=== PATIENT | female | born 1970 | race Caucasian/White ===

== ENCOUNTER → 2020-02-23 | Outpatient (CLI) | payer BC ==
--- NOTE | 2020-02-23 15:24 | XR ---
EXAMINATION TYPE: XR cervical spine comp DATE OF EXAM: 02/23/2020 TECHNIQUE: Frontal, lateral, oblique, and open mouth view of the cervical spine are obtained. HISTORY: [id number] CERVICALGIA right arm and hand pain. COMPARISON: None FINDINGS: The cervical spine is visualized from C1 thru the the bottom of C7 level, it is straighten ed in alignment without evidence of acute fracture or dislocation. Slight grade 1 retrolisthesis C5 o n C6. The pre-vertebral soft tissue appears within normal limits. The C1-C2 articulation is within n ormal limits on the open mouth view. Vertebral body heights are maintained. Mild disc space narrowin g and anterior spurring C5-C6 and C6-C7 levels The oblique images showed neural foraminal encroachmen t bilaterally at C5-C6 level due to marginal spurring. Overlying soft tissue is unremarkable. Subopti mal evaluation of C7-T1 disc space without dedicated swimmer's lateral view. IMPRESSION: As above.
== END | disposition home or self-care (01) ==
LOC: RADXRYALE 15:05
PROVIDERS: ATTEND Physician Assistant Medical
DX: M54.2 Cervicalgia (principal)
CPT/HCPCS: 72050

== ENCOUNTER → 2020-03-26 | Outpatient (CLI) | payer BC ==
--- NOTE | 2020-03-26 08:22 | US ---
EXAMINATION TYPE: US pelvic complete DATE OF EXAM: 03/26/2020 COMPARISON: NONE CLINICAL HISTORY: 49-year-old female N83.202 LT OVARIAN CYST, R101.32 LT LOWER QUADRANT PAIN. TECHNIQUE: Transabdominal (TA). Date of LMP: 03/04/2020 FINDINGS: EXAM MEASUREMENTS: Uterus: 8.9 x 3.9 x 5.2 cm Endometrial Stripe: 0.9 cm Right Ovary: 3.0 x 2.2 x 1.8 cm Left Ovary: 2.0 x 2.3 x 1.1 cm 1. Uterus: Anteverted. Left anterolateral focal fibroid at the level of the uterine body measures 1.5 x 1.4 x 1.4 cm. This appears intramural. 2. Endometrium: wnl 3. Right Ovary: follicle measures 1.6 x 1.2 x 1.4 cm 4. Left Ovary: wnl 5. Bilateral Adnexa: wnl 6. Posterior cul-de-sac: no free fluid IMPRESSION: 1. Endometrial stripe measuring 9 mm. 2. A 1.5 cm left anterolateral uterine body intramural fibroid. 3. A 1.6 cm dominant follicle or functional cyst in the right ovary.
== END | disposition home or self-care (01) ==
LOC: RADUSWWP 07:37
PROVIDERS: ATTEND Family Medicine
DX: D25.1 Intramural leiomyoma of uterus (principal); N83.201 Unspecified ovarian cyst, right side; N83.202 Unspecified ovarian cyst, left side; R10.32 Left lower quadrant pain
CPT/HCPCS: 76856

== ENCOUNTER 2020-05-21 10:15 | Day surgery (SDC) | payer BC ==
[2020-05-19 09:21] VITALS: BMI 26.2
--- NOTE | 2020-05-20 09:55 | HP ---
HISTORY AND PHYSICAL CHIEF COMPLAINT: Right hand pain and numbness. 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 She notes numbness in her thumb, index, middle, and ring fingers. She has been also. She has significant night symptoms. She has been wearing a brace and has tried medications without much relief. PAST MEDICAL HISTORY: Significant for hypothyroidism. PAST SURGICAL HISTORY: Negative. CURRENT MEDICATIONS: None. She has allergies to PENICILLIN, SULFA. FAMILY HISTORY: Significant for cancer. SOCIAL HISTORY: Negative for current tobacco or alcohol use. 16 POINT REVIEW OF SYSTEMS: Otherwise reviewed and is noncontributory. PHYSICAL EXAMINATION: On examination, the patient is approximately 5 foot 3, 148 pounds of mesomorphic habitus. HEENT: Exam is nonfocal. NECK: Supple. She is nontender about the right shoulder and elbow. On examination of her right wrist, she has a positive carpal tunnel compression test. Adductor pollicis brevis strength is 5-/5. Light touch is diffusely diminished in the right digits. She has minimal thenar wasting. Intrinsic strength is 5/5. EMG report right upper extremity shows right median motor latency of the carpal canal 5.6, sensory latency 6.3. IMPRESSION: Right carpal tunnel syndrome-symptomatic. RECOMMENDATIONS: I talked to the patient at length regarding her condition and treatment options. At this point, she is quite symptomatic despite conservative measures. After a thorough discussion, she opts to proceed with surgery. We will plan to proceed with right carpal tunnel release utilizing local anesthetic and IV sedation as an outpatient procedure. Risks and benefits were discussed at length in layman's terms. MMODL / IJN: [id number] /
[~2020-05-21 10:15] MED LIST: DEXAMETHASONE SOD PHOSPHATE 10 MG/ML 1 ML VIAL IV ONE; HYDROmorphone 0.5 MG/0.5 ML SYRINGE IVP PRN; LACTATED RINGERS 1,000 ML IV SCH; MIDAZOLAM 2 MG/2 ML VIAL IV PRN; ONDANSETRON 4 MG/2 ML VIAL IVP ONE; SCOPOLAMINE 1.5MG/72HR PATCH TRANSDERM ONE
[2020-05-21] MEDS ORDERED: BUPIVACAINE (PF) 0.25% 30 ML VIAL SQ ONE ×3 (10:16→11:52)
[2020-05-21 10:48] VITALS: RESP 16; TEMP 98.6
[2020-05-21] MEDS ORDERED: LIDOCAINE 1% (10MG/ML) FOR IV START INTRADERMA ONE (10:49)
[2020-05-21] MEDS ORDERED: fentaNYL (PF) 50 MCG/ML 2 ML AMP ONE (11:35)
[2020-05-21] MEDS ORDERED: PROPOFOL 10 MG/ML 20 ML VIAL IV ONE (11:35)
[2020-05-21] MEDS ORDERED: MIDAZOLAM 2 MG/2 ML VIAL ONE (11:35)
[2020-05-21] MEDS ORDERED: KETOROLAC 15 MG/ML 1 ML VIAL ONE (11:35)
--- NOTE | 2020-05-21 12:17 | P.OP ---
Date of Procedure: 05/21/20 Preoperative Diagnosis: Right carpal tunnel syndromesymptomatic Postoperative Diagnosis: Same Procedure(s) Performed: Right carpal tunnel release Anesthesia: MAC, local Surgeon: Roly Giraldo Estimated Blood Loss (ml): 2 Pathology: none sent Condition: stable Disposition: PACU Indications for Procedure: The patient's a 49-year-old female who presents with progressive right hand pain and numbness secondary to carpal tunnel syndrome despite conservative measures. A discussion of the risks and benefits of operative intervention versus continued conservative measures was made with patient. She To proceed with surgery. Operative risks to include infection, neurovascular injury, development of blood clots, possible incomplete resolution of symptoms, possible recurrence of symptoms, possible development of reflex sympathetic dystrophy need for subsequent procedures was discussed. Informed consent was obtained. Operative Findings: As below Description of Procedure: The patient was brought to the operating room, and after induction of IV sedation the right upper extremity was prepped and draped in normal fashion. The proposed incision site was outlined with a skin marker in line with the radial aspect the fourth ray extending from the volar distal wrist crease distally 2 and half centimeters. 10 mL of quarter percent plain Marcaine was injected. The tourniquet was inflated to 250 mmHg. Skin was then incised sharply. Subcu tissues were divided sharply. Electrocautery was used for hemostasis. The superficial palmar fascia was identified and was split in line with the skin incision. The transverse carpal ligament was identified and transected under direct visualization distally to level of palmar fat pad. Proximally was taken level of the volar wrist crease. A plane above and below the transverse carpal ligament was then bluntly developed with tenotomies. The confluence of the distal forearm fascia and the transverse carpal ligament was then transected under direct visualization with the tines pointed in the ulnar direction. I felt there was adequate proximal and distal release. Neural lysis was not performed. The wound was irrigated with normal saline. The skin was reapproximated with simple 4-0 nylon suture. A sterile dressing was applied. The tourniquet was deflated with less than 15 minutes total tourniquet time. The patient transferred to recovery in good condition. Blood loss estimated 2 mL. No complications were incurred. Sponge and needle counts were correct in the case.
[2020-05-21 12:29] VITALS: BP 103/51; PULSE 67
== END 2020-05-21 12:50 | disposition home or self-care (01) ==
LOC: OR 10:15
PROVIDERS: ATTEND Orthopaedic Surgery
DX: G56.01 Carpal tunnel syndrome, right upper limb (principal); E03.9 Hypothyroidism, unspecified; J30.2 Other seasonal allergic rhinitis; Z88.1 Allergy status to other antibiotic agents; Z88.0 Allergy status to penicillin; Z88.2 Allergy status to sulfonamides; Z85.828 Personal history of other malignant neoplasm of skin; Z79.899 Other long term (current) drug therapy; Z80.9 Family history of malignant neoplasm, unspecified
CPT/HCPCS: 81025; 64721; J2250; J1100; J2405; J0690; J3010; J1885; J2704

== ENCOUNTER → 2021-04-05 | Outpatient (CLI) | payer OTHER ==
--- NOTE | 2021-04-05 17:49 | XR ---
EXAMINATION TYPE: XR lumbar spine 2 or 3V DATE OF EXAM: 04/05/2021 COMPARISON: NONE HISTORY: Back pain TECHNIQUE: 3 views FINDINGS: The lumbar vertebra have normal alignment. Posterior elements are intact. Disc spaces are n ormal. Sacroiliac joints are intact. IMPRESSION: Negative lumbar spine exam. No fracture.
== END | disposition home or self-care (01) ==
LOC: RADXRMAIN 17:15
PROVIDERS: ATTEND Emergency Medicine
DX: S39.012A Strain of muscle, fascia and tendon of lower back, initial encounter (principal); X58.XXXA Exposure to other specified factors, initial encounter
CPT/HCPCS: 72100

== ENCOUNTER → 2021-12-05 | Outpatient (CLI) | payer BC ==
--- NOTE | 2021-12-06 08:40 | XR ---
EXAM TYPE: LUMBAR SPINE X RAY SERIES COMPARISON: 04/05/2021 HISTORY: Pain TECHNIQUE: 3 views are submitted. FINDINGS: Alignment is anatomic. The pedicles are intact. The transverse processes are intact. Hypertrophic and degenerative changes of the spine. Grade 1 anterolisthesis of L5 relative to S1. Facet arthropat hy seen. Vascular calcifications noted. Findings suggest bilateral sacroiliitis greater on the left. IMPRESSION: 1. Multilevel degenerative disc disease with facet arthropathy. 2. Sacroiliitis.
== END | disposition home or self-care (01) ==
LOC: RADXRYALE 16:19
PROVIDERS: ATTEND Physician Assistant Medical
DX: M47.896 Other spondylosis, lumbar region (principal); M46.1 Sacroiliitis, not elsewhere classified
CPT/HCPCS: 72100

== ENCOUNTER → 2022-04-12 | Outpatient (CLI) | payer BC ==
--- NOTE | 2022-04-13 08:00 | XR ---
EXAMINATION TYPE: XR wrist complete RT DATE OF EXAM: 04/12/2022 COMPARISON: NONE HISTORY: 51-year-old female [id number], right wrist pain TECHNIQUE: 3 views FINDINGS: Minimal positive ulnar variance. There is some cystic change and sclerosis along the ulnar proximal a spect of the lunate bone. Suspect a small intraosseous cyst measuring 5 mm within the hamate bone. There is a 3 mm ossific density along the palmar aspect of the wrist joint that could represent a loo se body. Otherwise, the radiocarpal and distal radioulnar joint as well as the midcarpal compartment appear intact. No acute fracture, subluxation, dislocation. IMPRESSION: 1. Bony changes suggest ulnar impaction syndrome. 2. A 3 mm ossific density within the palmar aspect of the wrist could represent some nonspecific syno vial or capsular calcification versus a small loose body.
== END | disposition home or self-care (01) ==
LOC: RADXRYALE 15:45
PROVIDERS: ATTEND Physician Assistant Medical
DX: M25.531 Pain in right wrist (principal)